=== PATIENT | male | born 2000 | race Hispanic/Latino ===

== ENCOUNTER 2023-10-23 23:12 | Emergency (ER) | payer SELFPAY ==
[~2023-10-23] VITALS: Ht 165.1 cm; Wt 56.7 kg
[2023-10-23 23:41] LABS: SARS-CoV-2, RNA, NAAT NEGATIVE SARS CoV-2 (NEGATIVE)
[2023-10-24 00:34] VITALS: BP 167/73; PULSE 92; RESP 18; O2SAT 99
== END 2023-10-24 00:37 | disposition home or self-care (01) ==
LOC: EDH 23:12
DX: Z00.00 Encounter for general adult medical examination without abnormal findings (principal); Z20.822 Contact with and (suspected) exposure to COVID-19
CPT/HCPCS: 87635